=== PATIENT | male | born 1970 | race Caucasian/White ===

== ENCOUNTER 2017-06-22 12:48 | Emergency (ER) | payer MEDICAID ==
[2017-06-22 13:01] VITALS: RESP 18
[2017-06-22] MEDS ORDERED: fentaNYL 100 MCG/2 ML INJ ONE (13:03)
[2017-06-22] MEDS ORDERED: ONDANSETRON 4 MG/2 ML VIAL ONE (13:03)
--- NOTE | 2017-06-22 13:03 | EDPHY ---
H & P Stated Complaint: Fall from Ladder - Right Hip Pain Time Seen by Provider: 06/22/17 13:02 HPI/ROS: CHIEF COMPLAINT: Neck pain, right rib pain, right hip pain following mechanical fall HISTORY OF PRESENT ILLNESS: The patient presents to the ED with complaints of headache, neck pain, right rib pain, lumbar pain and right hip pain following a 6 foot fall from a ladder. The patient reports none no loss of consciousness. He does report blurry vision. He complains of generalized this posterior cervical spine pain. He denies any acute numbness or weakness. The patient complains of right rib pain, lumbar pain and right hip pain. The patient has a prior history of a left hip replacement. The patient does have a history of a mild neuropathy which he occasionally takes gabapentin for. The patient has no complaints of nausea, hematemesis or additional extremity complaints. The patient denies anti-platelet or anticoagulant use. REVIEW OF SYSTEMS: A comprehensive 10 point review of systems is otherwise negative aside from elements mentioned in the history of present illness. Source: Patient Exam Limitations: No limitations - Personal History Current Tetanus Diphtheria and Acellular Pertussis (TDAP): Yes Tetanus Vaccine Date: 2015 - Medical/Surgical History Hx Asthma: No Hx Chronic Respiratory Disease: No Hx Diabetes: No Hx Cardiac Disease: No Hx Renal Disease: No Hx Cirrhosis: No Hx Alcoholism: No Hx HIV/AIDS: No Hx Splenectomy or Spleen Trauma: No Other PMH: Left Hip Replacement 2011 - Social History Smoking Status: Current every day smoker - Physical Exam Exam: General Appearance: Alert, mild discomfort Head: Atraumatic Eyes: Pupils equal, round, reactive ENT, Mouth: No hemotympanum, no oral trauma Neck: Nontender, trachea midline Respiratory: Tenderness to palpation right anterior chest wall, no subcutaneous emphysema Cardiovascular: Regular rate and rhythm Abdomen: Abdomen is soft and nontender, pelvis stable Skin: No lacerations, No abrasion Back: Tenderness to palpation lower lumbar spine, no palpable deformity Extremities: Tenderness to palpation right greater trochanter, decreased range of motion right hip secondary to pain Neurological: A&Ox3, normal motor function, normal sensory exam Constitutional: Initial Vital Signs Temperature (C) 36.7 C 06/22/17 12:55 Heart Rate 91 06/22/17 12:55 Respiratory Rate 18 06/22/17 12:55 Blood Pressure 137/79 H 06/22/17 12:55 O2 Sat (%) 94 06/22/17 12:55 O2 Delivery Mode Room Air Allergies/Adverse Reactions: meloxicam Allergy (Verified 06/22/17 13:19) Penicillins Allergy (Verified 06/22/17 12:54) tramadol Allergy (Verified 06/22/17 12:54) Home Medications: Medication Instructions Recorded GABAPENTIN 06/22/17 Medical Decision Making - Diagnostics Imaging Results: Imaging Impressions Abdomen CT 06/22/17 13:13 Impression: Nothing acute in the abdomen and pelvis. Findings and recommendations discussed with Aj Alvarado at 1441 hour, . Final report concurs with initial preliminary interpretation. Cervical Spine CT 06/22/17 13:13 Impression: There is no acute intracranial abnormality identified on this unenhanced CT evaluation. UNENHANCED CT SCAN OF THE CERVICAL SPINE Technique: A multidetector unenhanced helical CT scan was obtained from the clivus caudally through the upper thoracic spine, with images reformatted at 1.00 mm increments, and are reviewed in soft tissue, bone, and lung windows. Parasagittal and paracoronal reconstructed images are reviewed on the workstation. The DFOV is 16.9 cm. A dose reduction protocol was used. Findings: There is 3 mm of C4 anterolisthesis of C5 (the posterior alignment is otherwise unremarkable), and there appears to be some partial posterior interbody at the C4-C5 level (both medially and laterally), as well as bilateral facet joint osseous fusion. The right and left C6-C7 facet joints are also fused. There is a mild levocervical scoliosis. There are old mild ventral concavities from C5 to C7 with traction osteophytes. There is a prominent Schmorl's node seen along the superior cortical endplate of C7. There is no acute fracture, or facet malalignment. The interspinous distances are normal. The craniocervical junction is normal. The predental space is narrowed with subchondral geode formation and some osseous hypertrophy and mild degenerative sclerosis. The atlantoaxial lateral mass alignment is normal. The base and the tip of the dens are normal. There is no prevertebral or epidural hematoma identified. The prevertebral soft tissues are normal, as are the lung apices. At the C2-C3 level, there are some minor degenerative changes, without significant central canal or neural foraminal stenosis. At the C3-C4 level, there is facet hypertrophy, right greater than left, and uncovertebral degenerative spondylosis resulting in mild bilateral neural foraminal stenoses; the central canal is minimally narrowed. At the C4-C5 level, there is aforementioned anterolisthesis. There is facet hypertrophy and mild uncovertebral degenerative spondylosis. There is a mild degree of central canal stenosis. The neural foramina remain relatively patent. At the C5-C6 level, there is a broad-based ventral disk bulging resulting in mild central canal stenosis, slightly eccentric leftward. There is mild bilateral facet hypertrophy with uncovertebral degenerative spondylosis, and a mild degree of left neural foraminal stenosis. At the C6-C7 level there is advanced degenerative disk disease. There is mild bilateral facet hypertrophy. There is a mild degree of central canal stenosis. There is mild left neural foraminal narrowing. At the C7-T1 level, there is bilateral facet hypertrophy. The central canal and the neural foramina remain patent. Impression: Multilevel degenerative changes as above-detailed, with no acute cervical osseous abnormality identified. If there is further clinical concern regarding the patient's symptoms, correlative MR imaging could be considered, if otherwise not contraindicated. Findings were discussed with Aj Alvarado MD at 14:31, on 06/22/2017. Chest CT 06/22/17 13:13 Impression: No acute trauma in the chest. Findings and recommendations discussed with Dr. Aj Alvarado at 1436 hours on June 22, 2017. Final report concurs with initial preliminary interpretation. Head CT 06/22/17 13:13 Impression: There is no acute intracranial abnormality identified on this unenhanced CT evaluation. UNENHANCED CT SCAN OF THE CERVICAL SPINE Technique: A multidetector unenhanced helical CT scan was obtained from the clivus caudally through the upper thoracic spine, with images reformatted at 1.00 mm increments, and are reviewed in soft tissue, bone, and lung windows. Parasagittal and paracoronal reconstructed images are reviewed on the workstation. The DFOV is 16.9 cm. A dose reduction protocol was used. Findings: There is 3 mm of C4 anterolisthesis of C5 (the posterior alignment is otherwise unremarkable), and there appears to be some partial posterior interbody at the C4-C5 level (both medially and laterally), as well as bilateral facet joint osseous fusion. The right and left C6-C7 facet joints are also fused. There is a mild levocervical scoliosis. There are old mild ventral concavities from C5 to C7 with traction osteophytes. There is a prominent Schmorl's node seen along the superior cortical endplate of C7. There is no acute fracture, or facet malalignment. The interspinous distances are normal. The craniocervical junction is normal. The predental space is narrowed with subchondral geode formation and some osseous hypertrophy and mild degenerative sclerosis. The atlantoaxial lateral mass alignment is normal. The base and the tip of the dens are normal. There is no prevertebral or epidural hematoma identified. The prevertebral soft tissues are normal, as are the lung apices. At the C2-C3 level, there are some minor degenerative changes, without significant central canal or neural foraminal stenosis. At the C3-C4 level, there is facet hypertrophy, right greater than left, and uncovertebral degenerative spondylosis resulting in mild bilateral neural foraminal stenoses; the central canal is minimally narrowed. At the C4-C5 level, there is aforementioned anterolisthesis. There is facet hypertrophy and mild uncovertebral degenerative spondylosis. There is a mild degree of central canal stenosis. The neural foramina remain relatively patent. At the C5-C6 level, there is a broad-based ventral disk bulging resulting in mild central canal stenosis, slightly eccentric leftward. There is mild bilateral facet hypertrophy with uncovertebral degenerative spondylosis, and a mild degree of left neural foraminal stenosis. At the C6-C7 level there is advanced degenerative disk disease. There is mild bilateral facet hypertrophy. There is a mild degree of central canal stenosis. There is mild left neural foraminal narrowing. At the C7-T1 level, there is bilateral facet hypertrophy. The central canal and the neural foramina remain patent. Impression: Multilevel degenerative changes as above-detailed, with no acute cervical osseous abnormality identified. If there is further clinical concern regarding the patient's symptoms, correlative MR imaging could be considered, if otherwise not contraindicated. Findings were discussed with Aj Alvarado MD at 14:31, on 06/22/2017. ED Course/Re-evaluation: The patient presents to the ED with multiple traumatic complaints following a reported 6 foot fall from a ladder. The patient was noted to have diffuse tenderness upon arrival. He was noted to be hemodynamically stable. I detected no obvious external signs of trauma. Given his multiple complaints he was taken for a CT scan of the head, cervical spine, chest abdomen pelvis and lumbar spine. Patient underwent a right hip x-ray. The patient had an IV established. He received 100 mcg of IV fentanyl. He received an additional 1 mg of Dilaudid. All of the patient's imaging x-rays were reviewed by myself. There is no evidence of any acute injury noted. The patient was kept on a monitor throughout his stay in the department. Patient underwent serial exams. The patient continues to have ongoing muscular tenderness. At 2:50 p.m. he remains neurologically intact without evidence of spinal cord injury. I have cleared the patient's cervical spine clinically and radiographically. The patient presents to the ED with multiple painful complaints which all appear to be originating from soft tissue injuries. The patient will be discharged home with a prescription for anti-inflammatories and a muscle relaxant. Differential Diagnosis: Differential diagnosis considered includes intracranial hemorrhage, cervical spine fracture, rib fracture, pneumothorax, hemothorax, lumbar fracture, hip fracture, neurovascular injury - Data Points Laboratory Results: Laboratory Results 06/22/17 12:55 06/22/17 12:55 06/22/17 06/22/17 06/22/17 13:13 12:55 12:55 WBC 6.95 10^3/uL 10^3/uL (3.80-9.50) RBC 4.25 10^6/uL L 10^6/uL (4.40-6.38) Hgb 12.6 g/dL L g/dL (13.7-17.5) POC Hgb 12.2 gm/dL L gm/dL (13.7-17.5) Hct 37.2 % L % (40.0-51.0) POC Hct 36 % L % (40-51) MCV 87.5 fL fL (81.5-99.8) MCH 29.6 pg pg (27.9-34.1) MCHC 33.9 g/dL g/dL (32.4-36.7) RDW 13.4 % % (11.5-15.2) Plt Count 290 10^3/uL 10^3/uL (150-400) MPV 8.9 fL fL (8.7-11.7) Neut % (Auto) 71.3 % % (39.3-74.2) Lymph % (Auto) 23.7 % % (15.0-45.0) [place] % (Auto) 4.0 % L % (4.5-13.0) Eos % (Auto) 0.3 % L % (0.6-7.6) Baso % (Auto) 0.4 % % (0.3-1.7) Nucleat RBC Rel Count 0.0 % % (0.0-0.2) Absolute Neuts (auto) 4.95 10^3/uL 10^3/uL (1.70-6.50) Absolute Lymphs (auto) 1.65 10^3/uL 10^3/uL (1.00-3.00) Absolute Monos (auto) 0.28 10^3/uL L 10^3/uL (0.30-0.80) Absolute Eos (auto) 0.02 10^3/uL L 10^3/uL (0.03-0.40) Absolute Basos (auto) 0.03 10^3/uL 10^3/uL (0.02-0.10) Absolute Nucleated RBC 0.00 10^3/uL 10^3/uL (0-0.01) Immature Gran % 0.3 % % (0.0-1.1) Immature Gran # 0.02 10^3/uL 10^3/uL (0.00-0.10) POC Sodium 143 mEq/L mEq/L (134-144) Sodium 142 mEq/L mEq/L (134-144) POC Potassium 3.2 mEq/L L mEq/L (3.3-5.0) Potassium 3.0 mEq/L L mEq/L (3.5-5.2) POC Chloride 103 mEq/L mEq/L (97-110) Chloride 103 mEq/L mEq/L (97-110) Carbon Dioxide 23 mEq/l mEq/l (22-31) Anion Gap 16 mEq/L mEq/L (8-16) POC BUN < 3 mg/dL L mg/dL (7-23) BUN 3 mg/dL L mg/dL (7-23) Creatinine 0.8 mg/dL mg/dL (0.7-1.3) POC Creatinine 0.8 mg/dL mg/dL (0.7-1.3) Estimated GFR > 60 Glucose 120 mg/dL H mg/dL (70-100) POC Glucose 87 mg/dL mg/dL (70-100) Calcium 9.0 mg/dL mg/dL (8.5-10.4) Medications Given: Discontinued Medications Fentanyl (Sublimaze) 100 mcg IVP EDNOW ONE Stop: 06/22/17 13:05 Last Admin: 06/22/17 13:05 Dose: 100 mcg Hydromorphone HCl (Dilaudid) 1 mg IVP EDNOW ONE Stop: 06/22/17 13:28 Last Admin: 06/22/17 13:30 Dose: 1 mg Ondansetron HCl (Zofran) 4 mg IVP EDNOW ONE Stop: 06/22/17 13:05 Last Admin: 06/22/17 13:05 Dose: 4 mg Point of Care Test Results: 06/22/17 13:13 POC Sodium 143 POC Potassium 3.2 L POC Chloride 103 POC BUN < 3 L POC Creatinine 0.8 POC Glucose 87 Departure - Departure Disposition: Home, Routine, Self-Care Clinical Impression: Contusion of hip, right, Cervical spine pain, Lumbar strain, Chest wall contusion Condition: Good Instructions: Musculoskeletal Pain (ED) Additional Instructions: 1. Take Ibuprofen or Motrin 600 mg by mouth three times a day. 2. Flexeril as needed for muscle spasm 3. Return to the ED for markedly worsening pain
[2017-06-22] MEDS ORDERED: ONDANSETRON 4 MG/2 ML VIAL IVP ONE (13:04)
[2017-06-22] MEDS ORDERED: fentaNYL 100 MCG/2 ML INJ IVP ONE (13:04)
[2017-06-22 13:17] LABS: % IMMATURE GRANULYOCYTES 0.3 % (0.0-1.1); ABSOLUTE IMMATURE GRANULOCYTES 0.02 10^3/uL (0.00-0.10); ADD DIFF? NO; ADD MORPH? NO; ADD SCAN? NO; ATYPICAL LYMPHOCYTE FLAG 10 (0-99); FRAGMENT RBC FLAG 0 (0-99); HEMATOCRIT 37.2 % (40.0-51.0); HEMOGLOBIN 12.6 g/dL (13.7-17.5); LEFT SHIFT FLG 0 (0-99); LIPEMIA HEMOLYSIS FLAG 90 (0-99); MEAN CELL HEMOGLOBIN 29.6 pg (27.9-34.1); MEAN CELL HEMOGLOBIN CONCENTR. 33.9 g/dL (32.4-36.7); MEAN CELL VOLUME 87.5 fL (81.5-99.8); MEAN PLATELET VOLUME 8.9 fL (8.7-11.7); PLATELET CLUMPS FLAG 30 (0-99); PLATELET COUNT 290 10^3/uL (150-400); RED BLOOD CELL COUNT 4.25 10^6/uL (4.40-6.38); RED CELL DISTRIBUTION WIDTH 13.4 % (11.5-15.2)
[2017-06-22 13:23] LABS: ANION GAP 16 mEq/L (8-16); CARBON DIOXIDE 23 mEq/l (22-31); CHLORIDE 103 mEq/L (97-110); CREATININE 0.8 mg/dL (0.7-1.3); GLOMERULAR FILTRATION RATE > 60; GLUCOSE 120 mg/dL (70-100); SODIUM 142 mEq/L (134-144)
[2017-06-22] MEDS ORDERED: HYDROmorphONE/DILAUDID 1 MG/ML INJ IVP ONE (13:27)
[2017-06-22] MEDS ORDERED: IOPAMIDOL (ISOVUE-300) 100 ML BTL ONE (13:36)
[2017-06-22 15:09] VITALS: BP 136/76; PULSE 70; TEMP 98.8; O2SAT 99
== END 2017-06-22 15:08 | disposition home or self-care (01) ==
DX: S70.01XA Contusion of right hip, initial encounter (principal); S19.9XXA Unspecified injury of neck, initial encounter; S39.012A Strain of muscle, fascia and tendon of lower back, initial encounter; S20.211A Contusion of right front wall of thorax, initial encounter; F17.200 Nicotine dependence, unspecified, uncomplicated; W11.XXXA Fall on and from ladder, initial encounter
CPT/HCPCS: 82947-QW; 96374; J1170; J2405; J3010; Q9967

== ENCOUNTER 2017-11-24 10:30 | Emergency (ER) | payer MEDICAID ==
--- NOTE | 2017-11-24 12:41 | EDPHY ---
H & P Time Seen by Provider: 11/24/17 10:38 HPI/ROS: 47-year-old male presents complaining of fall down a ladder where he states he hit his groin on the ladder and eventually landed on his left hip, currently complaining of left testicular pain, left hip pain and lower back pain. He denies loss of consciousness. He denies numbness or tingling in his extremities. He denies loss of bowel or bladder control. He states he has a history of chronic back pain for which he takes gabapentin. Review of systems As per HPI General no fever no chills no weakness HEENT no eye pain no eye discharge. No eye redness, no sore throat Respiratory no cough, no shortness of breath Cardiac no chest pain, no peripheral edema GI no abdominal pain, no diarrhea, no constipation, no nausea, no vomiting no flank pain, no hematuria, no dysuria Musculoskeletal positive myalgias, positive joint pain Heme no easy bruising, no easy bleeding Endo no polyuria, no polydipsia Skin no rashes, no pruritus Neuro no syncope, no dizziness, no headaches Psych is no suicidal ideation, no homicidal ideation Past Medical/Surgical History: Chronic back pain Left hip total arthroplasty Social History: Denies alcohol or drug use Smoking Status: Current every day smoker Physical Exam: 47 yo M alert and oriented in nad ,non toxic appearance VSS at,nc pupils reactve eomi, anicteric neck supple, no neck tenderness lungs cta bilat heart rrr abd obese nabs soft nt back left si ttp, lower back ttp, no step offs, no ecchymoses, no abrasions, no swelling ext left hip with well healed total hip scar, ttp at left hip, left iliac crest from no swelling, no ecchymoses, no erythema, good distal pulses gu no swelling, testicles present, no lesions, no ecchymoses, no abrasions Constitutional: Initial Vital Signs Temperature (C) 37.8 C 11/24/17 10:55 Heart Rate 96 11/24/17 10:55 Respiratory Rate 18 11/24/17 10:55 Blood Pressure 143/82 H 11/24/17 10:55 O2 Sat (%) 92 11/24/17 10:55 O2 Delivery Mode Room Air Allergies/Adverse Reactions: meloxicam Allergy (Verified 11/24/17 10:53) Penicillins Allergy (Verified 11/24/17 10:53) tramadol Allergy (Verified 11/24/17 10:53) Home Medications: Medication Instructions Recorded Cyclobenzaprine [Flexeril 10 MG 10 mg PO TID PRN #15 tab 06/22/17 (*)] GABAPENTIN 06/22/17 Oxycontin 11/24/17 Medical Decision Making - Diagnostics Imaging Results: Imaging Impressions Hip X-Ray 11/24/17 11:03 Impression: Negative radiographs of the left hip. Left total hip arthroplasty without complication or fracture identified. Lumbar Spine CT 11/24/17 11:05 Impression: 1. No acute fracture. 2. Moderate multilevel degenerative disk disease. 3. Ankylosis of bilateral sacroiliac joints. No sacral insufficiency fracture. Findings discussed with Emergency Department physician, Tiny Noguera MD , on 11/24/2017, 11:54. Testicular Ultrasound 11/24/17 11:06 Impression: 1. Normal sonographic evaluation of each testis, and of the visualized proximal aspect of the penis. 2. There are a couple of benign-appearing right epididymal head cysts. Findings were discussed with Tiny Noguera MD at 12:28, on 11/24/2017. ED Course/Re-evaluation: Patient seen and evaluated for fall down a ladder approximately 6-DC home7 ft, complaining of left-sided pain hip, lower back, left scrotum. No loss of consciousness denies hitting his head. Lumbar CT negative for acute findings, positive old degenerative disease Scrotal ultrasound negative Left hip films and pelvis negative for fracture positive for evidence of total hip replacement. Urinalysis negative negative for blood Impression Left hip contusion left lumbar contusion left scrotal contusion Plan DC home Rest, ice , elevation f/u with pcp May take ibuprofen or acetaminophen as needed for pain. Differential Diagnosis: Differential diagnosis considered but not limited to: Left hip fracture left hip dislocation left femur fracture, lower back contusion lower back sprain, groin contusion Multiple contusions - Data Points Laboratory Results: 11/24/17 12:10 Urine Color YELLOW Urine Appearance CLEAR Urine pH 7.0 (5.0-7.5) Ur Specific [place] 1.010 (1.002-1.030) Urine Protein NEGATIVE (NEGATIVE) Urine Ketones NEGATIVE (NEGATIVE) Urine Blood NEGATIVE (NEGATIVE) Urine Nitrate NEGATIVE (NEGATIVE) Urine Bilirubin NEGATIVE (NEGATIVE) Urine Urobilinogen 0.2 EU EU (0.2-1.0) Ur Leukocyte Esterase NEGATIVE (NEGATIVE) Urine Glucose NEGATIVE (NEGATIVE) Departure - Departure Disposition: Home, Routine, Self-Care Clinical Impression: Contusion of left hip and thigh, Contusion of scrotum and testes, initial encounter Condition: Good Instructions: Contusion in Adults (ED) Referrals: NONE *PRIMARY CARE P,. [Primary Care Provider] - As per Instructions
[2017-11-24 12:57] VITALS: BP 132/110
== END 2017-11-24 12:55 | disposition home or self-care (01) ==
LOC: CED 10:30
DX: S70.02XA Contusion of left hip, initial encounter (principal); S70.12XA Contusion of left thigh, initial encounter; S30.22XA Contusion of scrotum and testes, initial encounter; F17.200 Nicotine dependence, unspecified, uncomplicated; W11.XXXA Fall on and from ladder, initial encounter
CPT/HCPCS: 72131-PO; 73502-PO; 76870-PO; 81003-PO